=== PATIENT | male | born 1980 | race Caucasian/White ===

== ENCOUNTER 2021-01-08 00:45 | Emergency (ER) | payer OTHER ==
[~2021-01-08 00:45] MED LIST: ACIPHEX20 MG PO; AMITIZA8 MCG PO; BENTYL10 MG PO; COLACE100 MG PO; LACTULOSE10 G/15 ML PO; LEVAQUIN750 MG PO; METRONIDAZOLE500 MG PO; MIRALAX 238GM238 GM PO; MYLICON80 MG PO; NAPROXEN500 MG PO; ONDANSETRON ODT4 MG SL
== END 2021-01-08 02:27 ==
LOC: FER 00:45
DX: T18.5XXA Foreign body in anus and rectum, initial encounter (principal); E11.9 Type 2 diabetes mellitus without complications
CPT/HCPCS: 72220; 74018

== ENCOUNTER 2021-03-09 00:01 | Emergency (ER) | payer OTHER ==
[2021-03-09 01:17] LABS: BILIRUBIN NEGATIVE (NEGATIVE); BLOOD NEGATIVE Ery/uL (NEGATIVE); CLARITY CLEAR (CLEAR); COLOR YELLOW (YELLOW); GLUCOSE (U) 2+ mg/dL (NORMAL); LEUKOCYTES NEGATIVE Leu/uL (NEGATIVE); NITRITE NEGATIVE (NEGATIVE); PROTEIN 1+ mg/dL (NEGATIVE); SPECIFIC GRAVITY >=1.030 (1.001-1.030); UROBILINOGEN 0.2 mg/dL (0.2-1.0)
[2021-03-09 01:22] LABS: ECSTASY (MDMA) POSITIVE (NEGATIVE); MARIJUANA (THC) NEGATIVE (NEGATIVE)
[2021-03-09 01:23] LABS: AMPHETAMINES NEGATIVE (NEGATIVE); BARBITURATES NEGATIVE (NEGATIVE); METHADONE NEGATIVE (NEGATIVE); OPIATES NEGATIVE (NEGATIVE); OXYCODONE NEGATIVE (NEGATIVE)
[2021-03-09 01:28] LABS: BACTERIA TRACE; SPERM PRESENT; SQUAMOUS EPITHELIAL CELLS RARE; URINARY RBC RARE; URINARY WBC RARE
== END 2021-03-09 02:00 ==
LOC: FER 00:01
PROVIDERS: Emergency Medicine Emergency Medical Services
DX: F19.121 Other psychoactive substance abuse with intoxication delirium (principal); E11.9 Type 2 diabetes mellitus without complications; F17.200 Nicotine dependence, unspecified, uncomplicated; Z79.84 Long term (current) use of oral hypoglycemic drugs
CPT/HCPCS: 70450; 71045; 80305; 81001; 93005

== ENCOUNTER 2021-04-18 17:41 | Day surgery (SDCO) | payer OTHER ==
[~2021-04-18] VITALS: Ht 180.3 cm; Wt 106.0 kg
[2021-04-18 18:16] LABS: BASOPHIL 0.4 % (0-2); EOSINOPHIL 2.1 % (0-5); HGB 15.5 g/dl (13.2-18.0); LYMPHOCYTE 17.4 % (15-48); MCH 30.7 pg (25.0-31.0); MCHC 35.2 g/dL (32.0-36.0); MCV 87.1 fL (78.0-100.0); MONOCYTE 8.4 % (0-12); MPV 9.8 fL (6.0-9.5); NEUTROPHIL 71.5 % (41-80); NRBC 0; PLT 245 K/uL (150-400); RBC 5.05 M/uL (4.70-6.00); RDW 12.8 % (11.5-14.0); WBC 9.7 K/uL (4.0-10.5)
[2021-04-18 18:39] LABS: LACTIC ACID 4.2 mmol/L (0.4-1.9)
[2021-04-18 18:44] LABS: ALBUMIN 3.8 g/dL (3.4-5.0); ALKALINE PHOSHATASE 115 U/L (46-116); ALT 65 U/L (16-63); AST 139 U/L (15-37); BILIRUBIN - TOTAL 0.9 mg/dL (0.2-1.0); BUN 21 mg/dL (7-18); BUN/CREAT RATIO (CALC) 19.4 RATIO; CHLORIDE 101 mmol/L (98-107); CO2 (BICARBONATE) 20 mmol/L (21-32); CPK 6249 U/L (39-308); CREATININE 1.08 mg/dL (0.67-1.17); GLOBULIN (CALCULATION) 3.3 g/dL; GLUCOSE 262 mg/dL (74-106); MAGNESIUM 1.9 mg/dL (1.8-2.4); POTASSIUM 3.3 mmol/L (3.5-5.1); TOTAL PROTEIN 7.1 g/dL (6.4-8.2)
[2021-04-18 21:08] LABS: BILIRUBIN 1+ mg/dL (NEGATIVE); BLOOD NEGATIVE Ery/uL (NEGATIVE); CLARITY CLEAR (CLEAR); COLOR YELLOW (YELLOW); GLUCOSE (U) 2+ mg/dL (NORMAL); LEUKOCYTES NEGATIVE Leu/uL (NEGATIVE); NITRITE NEGATIVE (NEGATIVE); PROTEIN TRACE (LOW) mg/dL (NEGATIVE); SPECIFIC GRAVITY >=1.030 (1.001-1.030); UROBILINOGEN 0.2 mg/dL (0.2-1.0); pH 5.5 (5.0-9.0)
[2021-04-18 21:13] LABS: AMPHETAMINES POSITIVE (NEGATIVE); BARBITURATES NEGATIVE (NEGATIVE); ECSTASY (MDMA) POSITIVE (NEGATIVE); MARIJUANA (THC) NEGATIVE (NEGATIVE); METHADONE NEGATIVE (NEGATIVE); OPIATES NEGATIVE (NEGATIVE); OXYCODONE NEGATIVE (NEGATIVE)
[2021-04-18 21:23] LABS: SQUAMOUS EPITHELIAL CELLS RARE
[2021-04-18 22:47] LABS: CORONAVIRUS 2019 SARS-COV-2 NEGATIVE (NEGATIVE); INFLUENZA A NAA NEGATIVE (NEGATIVE)
[2021-04-19 05:39] LABS: BASOPHIL 0.5 % (0-2); EOSINOPHIL 4.2 % (0-5); HGB 13.7 g/dl (13.2-18.0); LYMPHOCYTE 34.4 % (15-48); MCH 30.9 pg (25.0-31.0); MCHC 34.3 g/dL (32.0-36.0); MCV 90.1 fL (78.0-100.0); MONOCYTE 6.6 % (0-12); MPV 9.2 fL (6.0-9.5); NEUTROPHIL 54.1 % (41-80); NRBC 0; PLT 184 K/uL (150-400); RBC 4.44 M/uL (4.70-6.00); RDW 13.1 % (11.5-14.0); WBC 5.5 K/uL (4.0-10.5)
[2021-04-19 06:21] LABS: BILIRUBIN - TOTAL 0.8 mg/dL (0.2-1.0); BUN/CREAT RATIO (CALC) 21.2 RATIO; CREATININE 0.85 mg/dL (0.67-1.17); GLOBULIN (CALCULATION) 2.6 g/dL; POTASSIUM 3.7 mmol/L (3.5-5.1); TOTAL PROTEIN 5.6 g/dL (6.4-8.2)
--- NOTE | 2021-04-19 10:15 | NUR ---
04/19/21 A social assessment will be conducted when patient is able to participate.
--- NOTE | 2021-04-19 12:47 | NUR ---
PT SLEPT IN ROOM UNTIL ABOUT 1130. HE THEN STARTED GETTING HIS CLOTHES ON AND EATING HIS SNACKS THAT WERE IN THE ROOM WITH HIM. AT 1200 HE REMOVED HIS OWN IV, AND TOOK THE MONITORS OFF OF HIMSELF. WE TRIED TO EXPLAIN THAT EVERYONE IN THIS AREA WERE REQUIRED TO WEAR THE HEART MONITOR BUT HE COULDN'T COMPREHEND THAT IT WAS JUST A PRECAUTION AND THAT THAT THERE WAS NOTHING WRONG WITH HIS HEART. HE PERSISTED TO KEEP MONITORS OFF. 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 SHORTLY AFTER, HE CAME TO NURSES STATION STATING "MY MOM IS OUTSIDE TO PICK ME UP TO TAKE ME TO GET HELP." PT SIGNED HIS AMA PAPERS AND WALKED HIMSELF OUT OF THE BUILDING.
== END 2021-04-19 12:47 | disposition left against medical advice (07) ==
LOC: FER 17:41 → FICU 22:58
PROVIDERS: Emergency Medicine; Emergency Medicine Emergency Medical Services; Nurse Practitioner; ADMIT Allergy & Immunology Allergy
DX: T43.641A Poisoning by ecstasy, accidental (unintentional), initial encounter (principal); T43.621A Poisoning by amphetamines, accidental (unintentional), initial encounter; R41.0 Disorientation, unspecified; M62.82 Rhabdomyolysis; E86.0 Dehydration; E11.9 Type 2 diabetes mellitus without complications; Z79.84 Long term (current) use of oral hypoglycemic drugs; R00.0 Tachycardia, unspecified; Z20.822 Contact with and (suspected) exposure to COVID-19; W18.30XA Fall on same level, unspecified, initial encounter; Z53.29 Procedure and treatment not carried out because of patient's decision for other reasons; R10.9 Unspecified abdominal pain
CPT/HCPCS: 36415; 70450; 71045; 72125; 80053; 80305; 81001; 82550; 82962; 83036; 83605; 83735; 84145; 84484; 85025; 93005; 94760; 96372; G0378; G0480; J1644; J2060; J3486; J7030; U0002

== ENCOUNTER 2021-05-03 21:03 | Emergency (ER) | payer OTHER ==
[2021-05-03] MEDS ORDERED: BACTRIM DS TAB1 EACH PO (21:30)
[2021-05-03] MEDS ORDERED: BACTROBAN NASAL1 GM TOP (21:30)
== END 2021-05-03 21:55 | disposition home or self-care (01) ==
LOC: FER 21:03
DX: R21 Rash and other nonspecific skin eruption (principal); E11.9 Type 2 diabetes mellitus without complications; F17.210 Nicotine dependence, cigarettes, uncomplicated; Z79.84 Long term (current) use of oral hypoglycemic drugs; L27.1 Localized skin eruption due to drugs and medicaments taken internally; T43.625A Adverse effect of amphetamines, initial encounter
CPT/HCPCS: 99282

== ENCOUNTER 2021-05-04 02:02 | Emergency (ER) | payer OTHER ==
[~2021-05-04 02:02] MED LIST changes: +BACTRIM DS TAB1 EACH PO; +BACTROBAN NASAL1 GM TOP
[2021-05-04 03:05] LABS: BASOPHIL 0.6 % (0-2); EOSINOPHIL 0.9 % (0-5); HCT 43.7 % (42.0-52.0); HGB 14.9 g/dl (13.2-18.0); LYMPHOCYTE 16.8 % (15-48); MCHC 34.1 g/dL (32.0-36.0); MCV 88.1 fL (78.0-100.0); MPV 9.4 fL (6.0-9.5); NEUTROPHIL 74.8 % (41-80); NRBC 0; PLT 277 K/uL (150-400); RBC 4.96 M/uL (4.70-6.00); RDW 12.8 % (11.5-14.0); WBC 10.2 K/uL (4.0-10.5)
[2021-05-04 03:15] LABS: LACTIC ACID 1.4 mmol/L (0.4-1.9)
[2021-05-04 03:18] LABS: ALBUMIN 3.6 g/dL (3.4-5.0); BILIRUBIN - TOTAL 0.4 mg/dL (0.2-1.0); BUN/CREAT RATIO (CALC) 18.1 RATIO; C-REACTIVE PROTEIN 2.9 mg/dL (<=0.90); CREATININE 0.83 mg/dL (0.67-1.17); GLOBULIN (CALCULATION) 3.8 g/dL; POTASSIUM 3.5 mmol/L (3.5-5.1); TOTAL PROTEIN 7.4 g/dL (6.4-8.2)
== END 2021-05-04 08:30 | disposition home or self-care (01) ==
LOC: FER 02:02
PROVIDERS: Emergency Medicine
DX: L27.1 Localized skin eruption due to drugs and medicaments taken internally (principal); T43.625A Adverse effect of amphetamines, initial encounter; E11.9 Type 2 diabetes mellitus without complications; F17.210 Nicotine dependence, cigarettes, uncomplicated; Y92.9 Unspecified place or not applicable
CPT/HCPCS: 36415; 80053; 82550; 83605; 84145; 85025; 86140; J0690; J1200; J1885; J2060; J7030

== ENCOUNTER 2021-07-26 18:08 | Emergency (ER) | payer OTHER ==
[2021-07-26 18:36] LABS: BASOPHIL 0.4 % (0-2); EOSINOPHIL 0.5 % (0-5); HCT 44.2 % (42.0-52.0); HGB 15.3 g/dl (13.2-18.0); LYMPHOCYTE 10.8 % (15-48); MCH 30.2 pg (25.0-31.0); MCHC 34.6 g/dL (32.0-36.0); MCV 87.4 fL (78.0-100.0); MONOCYTE 8.4 % (0-12); MPV 9.3 fL (6.0-9.5); NEUTROPHIL 79.6 % (41-80); NRBC 0; PLT 242 K/uL (150-400); RBC 5.06 M/uL (4.70-6.00); RDW 13.2 % (11.5-14.0); WBC 13.3 K/uL (4.0-10.5)
[2021-07-26 18:54] LABS: BILIRUBIN 1+ mg/dL (NEGATIVE); BLOOD NEGATIVE Ery/uL (NEGATIVE); CLARITY CLEAR (CLEAR); COLOR YELLOW (YELLOW); GLUCOSE (U) 2+ mg/dL (NORMAL); LEUKOCYTES NEGATIVE Leu/uL (NEGATIVE); NITRITE NEGATIVE (NEGATIVE); PROTEIN TRACE (LOW) mg/dL (NEGATIVE); SPECIFIC GRAVITY >=1.030 (1.001-1.030)
[2021-07-26 18:56] LABS: AMPHETAMINES POSITIVE (NEGATIVE); BARBITURATES NEGATIVE (NEGATIVE); ECSTASY (MDMA) POSITIVE (NEGATIVE); MARIJUANA (THC) NEGATIVE (NEGATIVE); METHADONE NEGATIVE (NEGATIVE); OPIATES NEGATIVE (NEGATIVE)
[2021-07-26 18:57] LABS: OXYCODONE NEGATIVE (NEGATIVE)
[2021-07-26 19:02] LABS: BACTERIA 1+; RENAL EPITHELIAL CELLS RARE; URINARY RBC RARE
[2021-07-26 19:09] LABS: ACETAMINOPHEN (TYLENOL) < 2.0 ug/mL (10.0-30.0); ALKALINE PHOSHATASE 92 U/L (46-116); ALT 81 U/L (16-63); AST 63 U/L (15-37); BILIRUBIN - TOTAL 1.1 mg/dL (0.2-1.0); BUN 26 mg/dL (7-18); BUN/CREAT RATIO (CALC) 22.6 RATIO; CHLORIDE 100 mmol/L (98-107); CO2 (BICARBONATE) 27 mmol/L (21-32); CREATININE 1.15 mg/dL (0.67-1.17); GLOBULIN (CALCULATION) 3.1 g/dL; GLUCOSE 256 mg/dL (74-106); POTASSIUM 3.8 mmol/L (3.5-5.1); TOTAL PROTEIN 7.1 g/dL (6.4-8.2)
== END 2021-07-26 20:42 | disposition other institution (70) ==
LOC: FER 18:08 → EDBD 18:08 → FER 20:42
PROVIDERS: Internal Medicine
DX: T50.901A Poisoning by unspecified drugs, medicaments and biological substances, accidental (unintentional), initial encounter (principal); F23 Brief psychotic disorder; E11.9 Type 2 diabetes mellitus without complications; Z79.84 Long term (current) use of oral hypoglycemic drugs
CPT/HCPCS: 36415; 70450; 71045; 80053; 80305; 81001; 84443; 84484; 85025; 93005; 96372; G0480; J3486; U0002